=== PATIENT | female | born 1985 | race Two or more races ===

== ENCOUNTER → 2016-08-02 | Outpatient (REF) | payer OTHER | LOC: M SFHCLERA 09:58 | PROVIDERS: ATTEND Physician Assistant | DX: J02.9 Acute pharyngitis, unspecified (principal) ==

== ENCOUNTER 2016-09-16 07:47 | Emergency (ER) | payer OTHER ==
[~2016-09-16] VITALS: Ht 167.6 cm; Wt 97.7 kg
[2016-09-16] MEDS ORDERED: ZOFR20TA PO (08:15)
[2016-09-16] MEDS ORDERED: prenatal PO (08:15)
[2016-09-16] MEDS ORDERED: LAMO200T PO (08:15)
[2016-09-16 09:13] LABS: BASO % 0.8 % (0.0-1.0); EOS # 0.1 K/mm3 (0.0-0.50); EOS % 1.4 % (0.0-3.0); LARGE UNSTAINED CELL # 0.1 K/mm3 (0.0-0.4); LARGE UNSTAINED CELL % 1.3 % (0.0-4.0); LYMPH # 1.5 K/mm3 (1.5-6.5); LYMPH % 21.7 % (24.0-44.0); MEAN CORPUSCULAR HEMOGLOBIN 31.1 pg (27.0-33.0); MEAN CORPUSCULAR HGB CONC 34.2 g/dl (32.0-36.5); MONO # 0.4 K/mm3 (0.0-0.8); MONO % 5.1 % (0.0-5.0); NEUTROPHILS # 4.7 K/mm3 (1.8-7.7); NEUTROPHILS % 69.7 % (36.0-66.0); PLATELET COUNT, AUTOMATED 198 k/mm3 (150-450); RED CELL DISTRIBUTION WIDTH 11.8 % (11.5-14.5); WHITE BLOOD COUNT 6.8 K/mm3 (4.0-10.0)
--- NOTE | 2016-09-16 09:28 | REP ---
Clinical: Vaginal bleeding for dating and viability. Technique: Transabdominal first trimester obstetrical ultrasound with color Doppler evaluation. Findings: Diamniotic, dichorionic live early intrauterine is appreciated. TWIN A: Gestational sac with yolk sac and pole identified. [place]-rump length of 3 cm corresponds to 9 weeks 6 days gestational age with estimated date of delivery 04/15/2017 . heart rate equals 175 beats per minute. No gross abnormalities are identified. TWIN B: Gestational sac with yolk sac and pole identified. [place]-rump length of 3 cm corresponds to 9 weeks 6 days gestational age with estimated date of delivery 04/15/2017 . heart rate equals 168 beats per minute. No gross abnormalities are identified. Impression: Live early intrauterine twin at 9 weeks 6 days gestational age by current measurements. Growth is concordant. Complete anatomical assessment should be performed and 19-20 weeks. Signed by Paulino Soemrs MD 09/16/2016 09:20 A
[2016-09-16 10:29] VITALS: BP 106/64
== END 2016-09-16 10:32 | disposition home or self-care (01) ==
LOC: M ED 09:15
DX: O20.9 Hemorrhage in early pregnancy, unspecified (principal); O26.893 Other specified pregnancy related conditions, third trimester; O99.281 Endocrine, nutritional and metabolic diseases complicating pregnancy, first trimester; E28.2 Polycystic ovarian syndrome; Z3A.09 9 weeks gestation of pregnancy

== ENCOUNTER 2016-12-19 13:15 | Outpatient (CLI) | payer OTHER ==
[~2016-12-19] VITALS: Ht 167.6 cm; Wt 92.2 kg
[~2016-12-19 13:15] MED LIST: LAMO200T PO; ZOFR20TA PO; prenatal PO
[2016-12-19 13:32] VITALS: BP 124/70
[2016-12-19] MEDS ORDERED: ACET50TA PO (14:04)
== END 2016-12-19 14:21 | disposition home or self-care (01) ==
LOC: M LDO 13:15
PROVIDERS: ATTEND Obstetrics & Gynecology
DX: O26.852 Spotting complicating pregnancy, second trimester (principal); Z3A.23 23 weeks gestation of pregnancy; O30.042 Twin pregnancy, dichorionic/diamniotic, second trimester

== ENCOUNTER 2017-02-12 20:33 | Outpatient (CLI) | payer OTHER ==
[~2017-02-12] VITALS: Ht 167.6 cm; Wt 97.8 kg
[~2017-02-12 20:33] MED LIST changes: +ACET50TA PO
[2017-02-12] MEDS ORDERED: OXYTOCIN 30 UNITS IN 0.9% NaCl 500ML IV BAG (J2590) As Ordered ONE (21:27)
== END 2017-02-12 21:45 | disposition home or self-care (01) ==
LOC: M LDO 20:33
PROVIDERS: ATTEND Obstetrics & Gynecology
DX: O36.8130 Decreased fetal movements, third trimester, not applicable or unspecified (principal); O30.043 Twin pregnancy, dichorionic/diamniotic, third trimester; Z3A.31 31 weeks gestation of pregnancy
CPT/HCPCS: 59025; J2590

== ENCOUNTER 2017-02-23 19:40 | Outpatient (CLI) | payer OTHER ==
[2017-02-23] VITALS (9 sets, daily range): BP systolic 100–123; BP diastolic 52–71
[~2017-02-23] VITALS: Ht 167.6 cm; Wt 98.0 kg
[2017-02-23] MEDS ORDERED: PENICILLIN G POTASSIUM IV 5 MU in D5W MINI-BAG PLUS 100 ML IV STA (20:44)
[2017-02-23] MEDS ORDERED: TERBUTALINE SULFATE 1 MG/ML VIAL (J3105) SC ONE (20:45)
[2017-02-23] MEDS ORDERED: LACTATED RINGER'S 1000 ML IV ONE (20:45)
[2017-02-23] MEDS ORDERED: MAG SULF 1GM/100ML (MAG RUN) 1 GM in APPROPRIATE DILUENT 1 EA IV SCH (21:00)
[2017-02-23] MEDS ORDERED: MAGNESIUM *L&D* 4 GM/100 ML BAG (40MG/ML) (J3475) IV ONE (21:00)
[2017-02-23 21:14] LABS: MEAN CORPUSCULAR HGB CONC 33.9 g/dl (32.0-36.5); MEAN CORPUSCULAR VOLUME 85.5 fl (80.0-96.0); PLATELET COUNT, AUTOMATED 236 10^3/uL (150-450); RED CELL DISTRIBUTION WIDTH 12.8 % (11.5-14.5); WHITE BLOOD COUNT 12.9 10^3/uL (4.0-10.0)
[2017-02-23] MEDS: CALCIUM CARBONATE 500 MG CHEW U/D PO PRN (21:35)
[2017-02-23] MEDS: BETAMETHASONE SOLUSPAN 6MG/ML INJ 5ML (J0702) IM SCH (21:36)
[2017-02-23] MEDS: MAG SULF IV SCH (22:39)
[2017-02-24] VITALS (50 sets, daily range): BP systolic 87–137; BP diastolic 50–77
[2017-02-24] MEDS: PENICILLIN G POTASSIUM IV 2.5 MU in APPROPRIATE DILUENT 1 EA IV SCH ×5 (01:30→17:37)
--- NOTE | 2017-02-24 01:48 | HPE ---
DATE OF ADMISSION: 02/23/2017 This lady is a 31-year-old 2, para 1, last menstrual period (LMP) 07/11/2016, estimated date of confinement (EDC) 04/17/2017, at 32 weeks and 3 days with a history of contractions every 2-4 minutes, moderate intensity. No loss of fluid. No vaginal discharge. Her risk factors are she has dichorionic-diamniotic (di-di) twins at 32 weeks and she is still pursuing behavioral health. Her past history, in 2006, 40 weeks 6 days, spontaneous vaginal delivery, 9 pound 10 ounce infant. Labs show B positive, HIV negative, hepatitis negative, RPR negative, rubella immune. Varicella immune. Pap normal. Urine negative. Gonorrhea and chlamydia negative. 1-hour glucose early was 91, 28 weeks GTT was 116. CF was negative. On examination, she appears in distress. Category one strip times two on the monitor. She is normocephalic, atraumatic. Neck full range of motions. Pupils equal and reactive to light. Thyroid is midline. No jugular venous distention (JVD), bruits. Lungs are clear bilaterally to bases. No wheezes or rhonchi. Distal pulses are symmetric. She has no costovertebral angle (CVA) tenderness. Symphysis fundus height is appropriate. Four quadrant bowel sounds are noted. On examination, the cervix is posterior, thick, closed. No loss of fluid or vaginal bleeding and the presenting part is not in the pelvis. The ultrasound shows twin A is breech, amniotic fluid index (LEDY) of 8.19. Cervix is 4.81 and weight is 1877 grams. Twin B on the left is vertex, LEDY 5.89, 2076 grams. Urine is still pending. Her blood pressure is 113/71, pulse 103, respirations are 18 and temperature is 97.9. She is not bleeding. Neurologically complete. No incontinency, urgency or frequency. No nausea, vomiting, diarrhea or constipation. No diabetic issues. No past medical history. Surgical history is noncontributory. Family history is noncontributory. She does not smoke, drink, abuse drugs. She is . There is no domestic violence and she has good support system. Our plan of management is to do magnesium sulfate for neurological prophylaxis 4 grams intravenous (IV) push then 1 gram an hour. Prophylaxis for group B Streptococcus (GBS) with penicillin, the appropriate protocol. Will attempt an IV bolus and one episode of terbutaline. Should that reduce her frequency, we will continue with nifedipine. We have notified neonatology and we anticipate hopefully to reduce her contractions in the next 3-4 hours. Would also do betamethasone for enhancing lung maturity in the anticipation of her possibly delivering before 36 weeks. The patient had a planned section with tubal ligation at 39 weeks of gestation.
[2017-02-24] MEDS: LR 1,000 ML IV SCH ×3 (08:11→16:03)
[2017-02-24] MEDS: MAG SULF IV SCH ×2 (09:32→18:47)
[2017-02-24] MEDS: CALCIUM CARBONATE 500 MG CHEW U/D PO PRN ×2 (15:26→22:50)
[2017-02-24] MEDS ORDERED: ACETAMINOPHEN TAB 650MG DOSE (2X325MG) PO ONE (21:30)
[2017-02-24] MEDS: BETAMETHASONE SOLUSPAN 6MG/ML INJ 5ML (J0702) IM SCH (21:42)
--- NOTE | 2017-02-24 23:05 | DS.PDOC ---
Discharge Summary General Date of Admission Date of Discharge [id number] at 2300 Discharge Summary Discharge Summary Admission Diagnosis: Known di/di twins, contractions at 32+4 Discharge Diagnosis: s/p Betamethasone series and 24 hours of Magnesium Sulfate Condition: stable Meds on discharge: none Hospital Course: Pt is a 31 yo admitted as above for Betamethasone series and 24 hours of Magnesium Sulfate for neuroprotection due to regular contractions, known di/di twins. After 24 hours, the pt was tolerating a regular diet, pain was well controlled, and she had no reg ctx's, although uterine irritability persisted. She was stable/desirous for/of discharge. Her last 3 NST's (q 3 hrs) were reviewed at discharge and they were all cat 1 X2. Her cervix was also still closed at 2300. cob f/u in the clinic as scheduled. Sessions Vital Signs/I&Os Vital Signs Date Time Temp Pulse Resp B/P (MAP) Pulse Ox O2 Delivery O2 Flow Rate FiO2 02/24/17 22:25 99.4 18 02/24/17 21:20 83 89/51 (64) I&O- Last 24 Hours up to 6 AM 02/25/17 06:00 Intake Total 3886.0 ml Output Total 2025 ml Balance 1861.0 ml Discharge Medications Scheduled Lamotrigine (Lamotrigine) 200 Mg Tab, 200 MG PO DAILY, (Reported) [] , 1 TAB PO DAILY, (Reported) Allergies Coded Allergies: No Known Allergies (Unverified , 09/16/16) SESSIONS,SUSHMA Lewis MD Feb 24, 2017 23:05
== END 2017-02-24 23:10 | disposition home or self-care (01) ==
LOC: M LDO 19:40
PROVIDERS: ATTEND Obstetrics & Gynecology
DX: O60.03 Preterm labor without delivery, third trimester (principal); O30.043 Twin pregnancy, dichorionic/diamniotic, third trimester; Z3A.32 32 weeks gestation of pregnancy
CPT/HCPCS: 59025; 80307; 81001; 85027; 86780; 86850; 86900; 86901; 96365; 96366; 96367; 96368; 96372; 96375; J0702; J3105; J3475

== ENCOUNTER 2017-03-13 10:29 | Outpatient (CLI) | payer OTHER ==
[~2017-03-13] VITALS: Ht 167.6 cm; Wt 99.5 kg
[2017-03-13 10:45] VITALS: BP 124/72
[2017-03-13] MEDS ORDERED: TUMS500C PO (10:56)
[2017-03-13] MEDS ORDERED: FOLI1TAB4 PO (10:56)
== END 2017-03-13 11:38 | disposition home or self-care (01) ==
LOC: M LDO 10:29
PROVIDERS: ATTEND Obstetrics & Gynecology
DX: O26.893 Other specified pregnancy related conditions, third trimester (principal); O30.043 Twin pregnancy, dichorionic/diamniotic, third trimester; Z3A.35 35 weeks gestation of pregnancy

== ENCOUNTER 2017-03-22 15:06 | Outpatient (CLI) | payer OTHER ==
[2017-03-22] MEDS ORDERED: LACTATED RINGER'S 1000 ML IV (17:58)
[2017-03-22] MEDS ORDERED: LR 1,000 ML IV (17:58)
[2017-03-22] MEDS ORDERED: OXYTOCIN DRIP 30 UNITS in APPROPRIATE DILUENT 1 EA IV (18:00)
== END 2017-03-22 17:40 | disposition home or self-care (01) ==
LOC: M LDO 15:06
DX: O36.8130 Decreased fetal movements, third trimester, not applicable or unspecified (principal); Z3A.36 36 weeks gestation of pregnancy; O30.043 Twin pregnancy, dichorionic/diamniotic, third trimester; O47.03 False labor before 37 completed weeks of gestation, third trimester
CPT/HCPCS: 76815

== ENCOUNTER 2017-04-03 05:28 | Inpatient (IN) | payer OTHER ==
[2017-04-03] MEDS: LR 1,000 ML IV ×5 (06:00→19:00)
[2017-04-03 06:17] LABS: HEMATOCRIT 34.4 % (36.0-47.0); HEMOGLOBIN 11.5 g/dl (12.0-16.0); MEAN CORPUSCULAR HEMOGLOBIN 27.8 pg (27.0-33.0); MEAN CORPUSCULAR HGB CONC 33.4 g/dl (32.0-36.5); MEAN CORPUSCULAR VOLUME 83.1 fl (80.0-96.0); PLATELET COUNT, AUTOMATED 215 10^3/uL (150-450); RED BLOOD COUNT 4.14 10^6/uL (4.00-5.40); RED CELL DISTRIBUTION WIDTH 13.8 % (11.5-14.5)
[2017-04-03 06:35] LABS: AMPHETAMINES URINE REFLEX NEGATIVE (NEGATIVE); BARBITURATES URINE REFLEX NEGATIVE (NEGATIVE); BENZODIAZEPINES URINE REFLEX NEGATIVE (NEGATIVE); CANNABINOIDS URINE REFLEX NEGATIVE (NEGATIVE); COCAINE METABOLITE URINE REFLE NEGATIVE (NEGATIVE); METHADONE URINE REFLEX NEGATIVE (NEGATIVE); OPIATES URINE REFLEX NEGATIVE (NEGATIVE); PHENCYCLIDINE URINE REFLEX NEGATIVE (NEGATIVE)
[2017-04-03] MEDS: BICITRA 30ML SOLN UDC PO (07:44)
[2017-04-03] MEDS ORDERED: METOCLOPRAMIDE INJ 10MG/2ML VIAL (J2765) IV ×2 (08:00→09:15)
[2017-04-03] MEDS ORDERED: NALOXONE INJ 0.4 MG/1 ML VIAL (J2310) IV ×2 (08:00)
[2017-04-03] MEDS ORDERED: ONDANSETRON 4MG/2ML VIAL (J2405) IV ×2 (08:00→10:15)
[2017-04-03] MEDS ORDERED: MORPHINE PRES-FREE INJ 10 MG/10 ML VIAL (J2274) As Ordered (08:02)
[2017-04-03] MEDS ORDERED: ceFAZolin 2 GM/D5W 50 ML IV BAG (J0690 PER 500MG) As Ordered (08:03)
[2017-04-03] MEDS ORDERED: ePHEDrine SULFATE 25 MG/5 ML(5MG/ML) SYRINGE As Ordered ×2 (08:19)
[2017-04-03] MEDS ORDERED: PHENYLephrine HCL 500 MCG/5 ML (100MCG/ML) SYRINGE (J2370) As Ordered ×2 (08:23→08:38)
[2017-04-03] MEDS ORDERED: OXYTOCIN INJ 10 UNITS/ML VIAL (J2590) As Ordered ×3 (08:36)
[2017-04-03] MEDS ORDERED: KETOROLAC 60 MG/2 ML VIAL (J1885) As Ordered (08:36)
[2017-04-03] MEDS ORDERED: ONDANSETRON 4MG/2ML VIAL (J2405) As Ordered (08:36)
[2017-04-03] MEDS ORDERED: fentaNYL 100 MCG/2 ML INJECTION (J3010) As Ordered (08:53)
[2017-04-03] MEDS: DOCUSATE SODIUM 100 MG CAP PO ×2 (09:00→21:41)
[2017-04-03] MEDS: PRENATAL VITAMINS CHEWABLE TABLET PO (09:00)
[2017-04-03] MEDS ORDERED: lamoTRIgine 100MG TAB PO ×2 (09:00→21:00)
[2017-04-03] MEDS ORDERED: LR 1,000 ML IV (09:15)
[2017-04-03] MEDS ORDERED: fentaNYL 100 MCG/2 ML INJECTION (J3010) IV (10:15)
[2017-04-03] MEDS ORDERED: NALBUPHINE HCL 10 MG/ML AMP (J2300) IV (10:15)
[2017-04-03] MEDS: LACTATED RINGER'S 1000 ML IV (11:00)
[2017-04-03] MEDS: MEASLES,MUMPS,RUBELLA VACCINE INJ (MMR-II) (90707) SC (11:04)
[2017-04-03] MEDS: RHOGAM 300 MCG (1500 IU) INJ (J2790) IM (11:05)
[2017-04-03] MEDS: NALBUPHINE HCL 10 MG/ML AMP (J2300) IV (11:39)
[2017-04-03] MEDS: PERCOCET 5MG/325MG TAB PO (12:47)
[2017-04-03] MEDS: KETOROLAC 30 MG/ML VIAL (J1885) IV ×2 (15:06→21:42)
[2017-04-03] MEDS: lamoTRIgine 100MG TAB PO (19:33)
[2017-04-03] MEDS: ARIPiprazole 10 MG TAB PO (21:41)
[2017-04-04] MEDS: LR 1,000 ML IV (03:00)
[2017-04-04] MEDS: KETOROLAC 30 MG/ML VIAL (J1885) IV ×2 (03:23→09:36)
[2017-04-04] MEDS: NALBUPHINE HCL 10 MG/ML AMP (J2300) IV (03:34)
[2017-04-04 07:01] LABS: HEMATOCRIT 24.6 % (36.0-47.0); MEAN CORPUSCULAR HEMOGLOBIN 27.2 pg (27.0-33.0); MEAN CORPUSCULAR HGB CONC 32.1 g/dl (32.0-36.5); MEAN CORPUSCULAR VOLUME 84.8 fl (80.0-96.0); PLATELET COUNT, AUTOMATED 162 10^3/uL (150-450); WHITE BLOOD COUNT 8.7 10^3/uL (4.0-10.0)
[2017-04-04 07:09] LABS: HEMOGLOBIN 7.9 g/dl (12.0-16.0)
[2017-04-04] MEDS: PRENATAL VITAMINS CHEWABLE TABLET PO (09:37)
[2017-04-04] MEDS: DOCUSATE SODIUM 100 MG CAP PO ×2 (09:37→20:57)
[2017-04-04] MEDS: PERCOCET 5MG/325MG TAB PO (16:53)
[2017-04-04] MEDS: IBUPROFEN 800 MG TAB PO (17:17)
[2017-04-04] MEDS: lamoTRIgine 100MG TAB PO (19:25)
[2017-04-04] MEDS: ARIPiprazole 10 MG TAB PO (20:57)
[2017-04-05] MEDS: IBUPROFEN 800 MG TAB PO ×2 (00:58→08:07)
[2017-04-05] MEDS: PERCOCET 5MG/325MG TAB PO ×3 (00:59→12:34)
[2017-04-05] MEDS: PRENATAL VITAMINS CHEWABLE TABLET PO (08:08)
[2017-04-05] MEDS: DOCUSATE SODIUM 100 MG CAP PO (08:08)
== END 2017-04-05 14:10 | disposition home or self-care (01) | DRG 766 ==
LOC: M LDI 05:28 → M OBS 10:58
PROVIDERS: Obstetrics & Gynecology
PROC: 10D00Z1 Extraction of Products of Conception, Low, Open Approach (ICD-10-PCS; principal; 2017-04-03 07:30)
DX: O30.043 Twin pregnancy, dichorionic/diamniotic, third trimester (principal); Z37.2 Twins, both liveborn; Z3A.38 38 weeks gestation of pregnancy; O32.1XX0 Maternal care for breech presentation, not applicable or unspecified